=== PATIENT | male | born 1940 | race Caucasian/White ===

== ENCOUNTER → 2016-06-10 | Outpatient (CLI) | payer MEDICARE ==
[~2016-06-10] MED LIST: ALPH200C PO; ASPI-515 PO; ATOR10TA9 PO; CHOL2000 PO; FOLI20CA PO; GLUC1CAP18 PO; INSU100C5 SQ-INSULIN; LISI-467 PO; MULT1TAB13 PO; TADA20TA PO; VIT1TABL32 PO
== END | disposition home or self-care (01) ==
LOC: CFH 07:40
PROVIDERS: ATTEND Internal Medicine Endocrinology, Diabetes & Metabolism
DX: E10.65 Type 1 diabetes mellitus with hyperglycemia (principal); E21.2 Other hyperparathyroidism; E55.9 Vitamin D deficiency, unspecified
CPT/HCPCS: 36415; 82306; 82310; 83036; 83970

== ENCOUNTER → 2016-09-11 | Outpatient (CLI) | payer MEDICARE ==
[2016-09-11 13:20] LABS: ASPARTATE AMINO TRANSFERASE 38 U/L (15-37); BLOOD UREA NITROGEN 23 mg/dL (7-18)
[2016-09-12 11:06] LABS: CREATININE URINE 110.8 mg/dL (Not Estab.)
== END | disposition home or self-care (01) ==
LOC: CFH 07:19
PROVIDERS: ATTEND Internal Medicine Endocrinology, Diabetes & Metabolism
DX: E10.65 Type 1 diabetes mellitus with hyperglycemia (principal); E78.5 Hyperlipidemia, unspecified
CPT/HCPCS: 36415; 80053; 80061; 82043; 82570; 83036; 84443

== ENCOUNTER → 2017-11-20 | Outpatient (CLI) | payer MEDICARE ==
[~2017-11-20] MED LIST changes: +ASPI-496 PO; +LISI40TA PO; +UBID100C24 PO
== END | disposition home or self-care (01) ==
LOC: STAR 11:51
PROVIDERS: ATTEND Internal Medicine Cardiovascular Disease
DX: Z02.9 Encounter for administrative examinations, unspecified (principal)

== ENCOUNTER 2017-11-24 08:25 | Observation (INO) | payer MEDICARE ==
[2017-11-20 12:49] VITALS: BP 160/60
[~2017-11-24] VITALS: Ht 180.3 cm; Wt 77.3 kg
[2017-11-24] MEDS: SODIUM CHLORIDE 0.9% 1,000 ML IV SCH ×2 (08:36→16:36)
[2017-11-24 09:12] LABS: BASOPHILS # (AUTO) 0.09 x10^3/uL (0-0.1); BASOPHILS % (AUTO) 1 % (0-1); EOSINOPHILS # (AUTO) 0.17 x10^3/uL (0-0.4); EOSINOPHILS % (AUTO) 2 % (1-7); LYMPHOCYTES # (AUTO) 1.23 x10^3/uL (1-3.4); LYMPHOCYTES % (AUTO) 15 % (22-44); MD NO; MEAN CORPUSCULAR HEMOGLOBIN 31.5 pg (27.5-34.5); MEAN CORPUSCULAR HGB CONC 33.3 g/dL (33.2-36.2); MEAN CORPUSCULAR VOLUME 94.4 fL (81-97); MEAN PLATELET VOLUME 9.4 fL (7.4-10.4); MONOCYTES # (AUTO) 0.92 x10^3/uL (0.2-0.8); MONOCYTES % (AUTO) 11 % (2-9); NEUTROPHILS # (AUTO) 5.71 x10^3/uL (1.8-6.8); NEUTROPHILS % (AUTO) 70 % (42-75); PLATELET COUNT 235 x10^3/uL (130-400); RED BLOOD COUNT 4.56 x10^6/uL (4.38-5.82); RED CELL DISTRIBUTION WIDTH 14.2 % (9.4-14.8)
[2017-11-24 09:19] LABS: ANION GAP 10 mmol/L (5-15); CALCIUM 8.5 mg/dL (8.5-10.1); CHLORIDE 104 mmol/L (98-107); CREATININE 1.31 mg/dL (0.7-1.3)
[2017-11-24] MEDS ORDERED: CEFAZOLIN PMX 1GM/50ML 50 ML ONE (09:23)
[2017-11-24] MEDS ORDERED: LIDOCAINE-MPF 2%, 2ML ONE (09:23)
[2017-11-24] MEDS ORDERED: CEFAZOLIN 1,000 MG ONE (09:23)
[2017-11-24] MEDS ORDERED: FENTANYL PF 100 MCG/2ML ONE (09:23)
[2017-11-24] MEDS ORDERED: MIDAZOLAM 1 MG/ML, 5ML ONE (09:24)
[2017-11-24] MEDS ORDERED: ZOLPIDEM 5MG TABLET PO PRN (10:30)
[2017-11-24] MEDS ORDERED: ACETAMINOPHEN 325 MG TABLET PO PRN (10:30)
[2017-11-24] MEDS ORDERED: HOLD MEDICATION MC PRN (10:30)
[2017-11-24 10:55] VITALS: BP 113/78
[2017-11-24 12:29] VITALS: BP 127/74
[2017-11-24] MEDS: CEFAZOLIN PMX 1GM/50ML 50 ML IVPB SCH (16:42)
[2017-11-24 19:48] VITALS: BP 130/75
[2017-11-24] MEDS: SODIUM CHLORIDE FLUSH 10ML SYR IVF SCH (20:05)
[2017-11-24] MEDS: ATORVASTATIN 10 MG TABLET PO SCH ×2 (20:05→20:06)
[2017-11-25 00:16] VITALS: BP 134/78
[2017-11-25] MEDS: SODIUM CHLORIDE 0.9% 1,000 ML IV SCH ×2 (00:37→07:50)
[2017-11-25] MEDS: CEFAZOLIN PMX 1GM/50ML 50 ML IVPB SCH (00:48)
[2017-11-25 07:13] VITALS: BP 134/78
[2017-11-25] MEDS: SODIUM CHLORIDE FLUSH 10ML SYR IVF SCH (07:58)
[2017-11-25] MEDS ORDERED: MINERALS PO SCH (09:00)
[2017-11-25] MEDS ORDERED: TEMPLATE NON-FORMULARY MED. (Ubidecarenone (Coq-10) 300 MG) PO SCH (09:00)
[2017-11-25] MEDS ORDERED: MULTIVITAMINS/MINERALS TABLET PO SCH (09:00)
[2017-11-25] MEDS ORDERED: [UNRECOGNIZED DRUG - OTHER] PO SCH (09:00)
[2017-11-25] MEDS ORDERED: CHOLECALCIFEROL 1,000 UNIT TABLET PO SCH (09:00)
[2017-11-25] MEDS ORDERED: LUTEIN PO SCH (09:00)
[2017-11-25] MEDS ORDERED: LISINOPRIL 20 MG TABLET PO SCH (09:00)
[2017-11-25] MEDS ORDERED: VIT A C PO SCH (09:00)
[2017-11-25] MEDS ORDERED: TEMPLATE NON-FORMULARY MED. (Gluc Hcl/Csa/Coll Hy/Hyalur Ac** (Glucosamine Chondroitin Cap PO SCH (09:00)
[2017-11-25] MEDS ORDERED: ASPIRIN 81 MG TABLET EC PO SCH (09:00)
[2017-11-25] MEDS ORDERED: TEMPLATE NON-FORMULARY MED. (Alpha Lipoic Acid** 200 MG) PO SCH (09:00)
== END 2017-11-25 10:14 | disposition home or self-care (01) ==
LOC: CACL 08:25 → 5SO 10:27 → CACL 11:11 → DCLOUNGE 11-25 10:03
PROVIDERS: ADMIT Internal Medicine Cardiovascular Disease; ATTEND Internal Medicine Cardiovascular Disease
DX: I49.5 Sick sinus syndrome (principal); R00.1 Bradycardia, unspecified; I10 Essential (primary) hypertension; E78.5 Hyperlipidemia, unspecified; E10.9 Type 1 diabetes mellitus without complications; R74.8 Abnormal levels of other serum enzymes; I45.19 Other right bundle-branch block
CPT/HCPCS: 33208; 36415; 71045; 80048; 82962; 85025; 96365; 96366; 99156; 99157; C1779; C1785; C1892; G0378; J0690; J2250; J3010; J3490

== ENCOUNTER → 2017-11-27 | Outpatient (CLI) | payer MEDICARE | END | disposition home or self-care (01) | LOC: CFH 15:19 | PROVIDERS: ATTEND Internal Medicine Cardiovascular Disease | DX: I07.1 Rheumatic tricuspid insufficiency (principal); E78.5 Hyperlipidemia, unspecified | CPT/HCPCS: 93306 ==

== ENCOUNTER 2020-11-19 08:16 | Outpatient (CLI) | payer MEDICARE ==
[~2020-11-19 08:16] MED LIST changes: -ASPI-515 PO; +ASPI-963 PO; -LISI40TA PO; +LISI40TA9 PO
[2020-11-19 08:47] LABS: ALANINE AMINOTRANSFERASE 32 U/L (12-78); ALBUMIN 3.4 g/dL (3.4-5.0); ANION GAP 5 mmol/L (5-15); CALCIUM 8.6 mg/dL (8.5-10.1); CHLORIDE 104 mmol/L (98-107); CREATININE 1.12 mg/dL (0.7-1.3)
[2020-11-19 08:55] LABS: ALKALINE PHOSPHATASE 92 U/L (45-117); BILIRUBIN,TOTAL 0.7 mg/dL (0.2-1.0); CHOL/HDL RATIO 2.1; CHOLESTEROL, TOTAL 126 mg/dL (140-239); FREE T4 (FREE THYROXINE) 0.92 ng/dL (0.76-1.46); HDL CHOL % 47 % (26-37); HDL CHOLESTEROL (DIRECT) 59 mg/dL (40-60); LDL CHOLESTEROL,CALCULATED 60 mg/dL (54-169); TOTAL PROTEIN 7.2 g/dL (6.4-8.2); TRIGLYCERIDES 35 mg/dL (50-200); VLDL CHOLESTEROL 7 mg/dL (0-25)
== END 2020-11-19 23:59 | disposition home or self-care (01) ==
LOC: LAB 08:16
PROVIDERS: ATTEND Physician Assistant
DX: E10.65 Type 1 diabetes mellitus with hyperglycemia (principal)
CPT/HCPCS: 36415; 80053; 80061; 82043; 82570; 84439; 84443